=== PATIENT | female | born 1935 | race Caucasian/White ===

== ENCOUNTER 2019-09-15 08:35 | Inpatient (IN) ==
[2019-09-15 09:25] LABS: Basophils % 0.2 % (0.0-0.8); Eosinophils % 0.1 % (0.00-10.9); Hematocrit 33.6 VOL% (35.7-47.0); Hemoglobin 10.8 GM/DL (12.0-16.0); Immature Granulocytes % 0.8 %; Lymphocytes # 2.4 10*3/uL (1.4-4.0); Lymphocytes % 19.4 % (21.3-54.2); Mean Corpuscular HGB Conc 32.1 GM/DL (32-36); Mean Corpuscular Volume 76.9 FL (87-102); Mean Platelet Volume 9.5 FL (9.6-12.0); Monocytes % 7.7 % (1.7-12.7); Neutrophils % 71.8 % (38.7-73.9); Platelet Count 467 T/CUMM (130-400); Red Blood Count 4.37 MC/CUMM (3.8-5.5); Red Cell Distribution Width 12.8 % (9.3-17.3); White Blood Count 12.3 T/CUMM (4-12)
[2019-09-15] MEDS ORDERED: SODIUM CHLORIDE 0.9% 500 ML IV STA (09:36)
[2019-09-15] MEDS ORDERED: ONDANSETRON 4 MG/2 ML VIAL IV STA ×2 (09:37→10:26)
[2019-09-15 09:48] LABS: Alanine Aminotransferase 13 U/L (13-56); Albumin 3.1 G/DL (3.4-5.0); Alkaline Phosphatase 106 U/L (45-117); Aspartate Amino Transferase 15 U/L (0-37); Blood Urea Nitrogen 11 MG/DL (7-18); Calcium 8.9 MG/DL (8.5-10.1); Estimated Glom Filtration Rate 52 ML/MIN; Glucose 196 MG/DL (74-106); Osmolality,Calculated 239.6 MOS/KG (273-304); Total Protein 8.1 G/DL (6.4-8.3)
[2019-09-15] MEDS ORDERED: LEVOFLOXACIN INJ 750 MG in PREMIX 1 EACH IV STA (10:20)
[2019-09-15] MEDS ORDERED: LEVOFLOXACIN INJ 150 ML IV ONE (10:28)
[2019-09-15] MEDS ORDERED: ONDANSETRON 4 MG/2 ML VIAL ONE (10:28)
[2019-09-15 11:08] LABS: Apearance,Urine CLEAR (Clear); Bilirubin,Urine Negative (Negative); Blood, Urine Small mg/dL (Negative); Glucose,Urine (UA) Negative (Negative); Ketones,Urine 5 mg/dL (Negative); Nitrite,Urine Negative (Negative); Protein,Urine Negative; RBC,Urine 3 /HPF (0-4); Squamous Epithelial Cell,Urine Occasional /HPF (0-10); Urine Color Yellow (Yellow); Urine Specific Gravity 1.012 (1.001-1.035); Urine Urobilinogen < 2.0 EU/DL (0.2-1.0); WBC,Urine 141 /HPF (0-6)
[2019-09-15] MEDS ORDERED: PROMETHAZINE 25 MG/1 ML VIAL ONE (11:09)
[2019-09-15] MEDS ORDERED: PROMETHAZINE INJ 25 MG in SODIUM CHLORIDE 0.9% 50 ML IV STA (11:36)
[2019-09-15 14:26] LABS: Calcium 8.5 MG/DL (8.5-10.1); Osmolality,Calculated 240.3 MOS/KG (273-304)
[2019-09-15] MEDS: SODIUM CHLORIDE 0.9% 1,000 ML IV SCH (16:03)
[2019-09-15] MEDS: ONDANSETRON 4 MG/2 ML VIAL IV PRN (16:38)
[2019-09-15] MEDS: cefTRIAXone 1,000 MG in SYRINGE 1 EACH IV SCH (16:38)
[2019-09-15] MEDS: SIMVASTATIN 40 MG TABLET PO SCH (20:49)
[2019-09-15] MEDS: ASPIRIN EC 81 MG TABLET PO SCH (20:49)
[2019-09-15] MEDS: DOCUSATE SODIUM 100 MG CAPSULE PO SCH (20:50)
[2019-09-16] MEDS: SODIUM CHLORIDE 0.9% 1,000 ML IV SCH ×3 (01:38→16:36)
[2019-09-16] MEDS: ACETAMINOPHEN 325 MG TABLET PO PRN (04:54)
[2019-09-16 07:09] LABS: Calcium 8.2 MG/DL (8.5-10.1); Osmolality,Calculated 239.3 MOS/KG (273-304)
[2019-09-16] MEDS ORDERED: NON-FORMULARY MEDICATION (Omeprazole 20 MG) PO SCH (09:00)
[2019-09-16] MEDS: METOPROLOL SUCCINATE XL 50 MG TABLET PO SCH (09:06)
[2019-09-16] MEDS: DOCUSATE SODIUM 100 MG CAPSULE PO SCH ×2 (09:06→21:35)
[2019-09-16] MEDS: cefTRIAXone 1,000 MG in SYRINGE 1 EACH IV SCH (09:06)
[2019-09-16] MEDS: PANTOPRAZOLE 40 MG TABLET PO SCH (09:06)
[2019-09-16] MEDS: ENOXAPARIN 40 MG/0.4 ML SYRINGE SUBCUT SCH (09:06)
[2019-09-16] MEDS: ONDANSETRON 4 MG/2 ML VIAL IV PRN (09:14)
[2019-09-16] MEDS: SIMVASTATIN 40 MG TABLET PO SCH (21:35)
[2019-09-16] MEDS: ASPIRIN EC 81 MG TABLET PO SCH (21:35)
[2019-09-17] MEDS: ACETAMINOPHEN 325 MG TABLET PO PRN ×2 (02:27→17:54)
[2019-09-17 05:49] LABS: Calcium 7.9 MG/DL (8.5-10.1); Osmolality,Calculated 250.5 MOS/KG (273-304)
[2019-09-17] MEDS: PANTOPRAZOLE 40 MG TABLET PO SCH (06:19)
[2019-09-17] MEDS: SODIUM CHLORIDE 0.9% 1,000 ML IV SCH ×3 (07:10→17:59)
[2019-09-17] MEDS: METOPROLOL SUCCINATE XL 50 MG TABLET PO SCH (08:38)
[2019-09-17] MEDS: cefTRIAXone 1,000 MG in SYRINGE 1 EACH IV SCH (08:38)
[2019-09-17] MEDS: ENOXAPARIN 40 MG/0.4 ML SYRINGE SUBCUT SCH (08:38)
[2019-09-17] MEDS: DOCUSATE SODIUM 100 MG CAPSULE PO SCH ×2 (08:38→21:14)
[2019-09-17] MEDS ORDERED: MAGNESIUM SULF RIDER 2 GM in PREMIX 1 EACH IV PRN (11:24)
[2019-09-17] MEDS ORDERED: MAGNESIUM SULF RIDER 4 GM in PREMIX 1 EACH IV PRN (11:24)
[2019-09-17] MEDS ORDERED: POTASSIUM CHLORIDE RIDER 10 MEQ in PREMIX 1 EACH IV PRN (11:24)
[2019-09-17] MEDS: POTASSIUM CHLORIDE 20 MEQ TABLET PO PRN ×3 (11:55→21:15)
[2019-09-17] MEDS ORDERED: BISACODYL 5 MG TABLET PO ONE (12:30)
[2019-09-17] MEDS: SIMVASTATIN 40 MG TABLET PO SCH (21:15)
[2019-09-17] MEDS: ASPIRIN EC 81 MG TABLET PO SCH (21:15)
[2019-09-18] MEDS: PANTOPRAZOLE 40 MG TABLET PO SCH (05:41)
[2019-09-18 06:59] LABS: Osmolality,Calculated 260.7 MOS/KG (273-304)
[2019-09-18 07:25] VITALS: BP 181/61
[2019-09-18] MEDS: SODIUM CHLORIDE 0.9% 1,000 ML IV SCH (07:34)
[2019-09-18] MEDS: METOPROLOL SUCCINATE XL 50 MG TABLET PO SCH (09:34)
[2019-09-18] MEDS: ENOXAPARIN 40 MG/0.4 ML SYRINGE SUBCUT SCH (09:34)
[2019-09-18] MEDS: cefTRIAXone 1,000 MG in SYRINGE 1 EACH IV SCH (09:34)
[2019-09-18] MEDS: DOCUSATE SODIUM 100 MG CAPSULE PO SCH (09:34)
== END 2019-09-18 11:59 | disposition home or self-care (01) | DRG 641 ==
LOC: N.ED 08:35 → N.EDINP 10:32 → N.2E 11:40
PROVIDERS: ADMIT Family Medicine; ATTEND Family Medicine

== ENCOUNTER 2020-09-13 08:10 | Inpatient (IN) ==
[2020-09-13] MEDS ORDERED: ONDANSETRON 4 MG/2 ML VIAL IV STA (08:27)
[2020-09-13] MEDS ORDERED: HYDROmorphone 2 MG/1 ML VIAL IV STA (08:27)
[2020-09-13 08:50] LABS: Basophils # 0.1 10*3/uL (0.0-0.2); Basophils % 0.4 % (0.0-0.8); Eosinophils % 0.2 % (0.00-10.9); Hematocrit 30.5 VOL% (35.7-47.0); Hemoglobin 9.2 GM/DL (12.0-16.0); Immature Granulocytes % 0.4 %; Immature Granulocytes Absolute 0.05 #; Lymphocytes # 2.1 10*3/uL (1.4-4.0); Lymphocytes % 16.3 % (21.3-54.2); Mean Corpuscular HGB Conc 30.2 GM/DL (32-36); Mean Corpuscular Volume 82.4 FL (87-102); Mean Platelet Volume 10.7 FL (9.6-12.0); Monocytes % 8.7 % (1.7-12.7); Platelet Count 253 T/CUMM (130-400); Red Cell Distribution Width 15.3 % (9.3-17.3); White Blood Count 12.7 T/CUMM (4-12)
[2020-09-13 09:01] LABS: INR 1.1; PT Patient Result 11.4 SECS (9.8-11.9); Partial Thromboplastin Time 26.9 SECS (23.9-33.8)
[2020-09-13 09:08] LABS: Albumin 3.3 G/DL (3.4-5.0); Bilirubin,Total 0.6 MG/DL (0.2-1.0); Calcium 9.1 MG/DL (8.5-10.1); Osmolality,Calculated 265.8 MOS/KG (273-304); Total Protein 7.4 G/DL (6.4-8.3)
[2020-09-13] MEDS ORDERED: ONDANSETRON 4 MG/2 ML VIAL IV PRN (10:32)
[2020-09-13] MEDS ORDERED: ACETAMINOPHEN 325 MG TABLET PO PRN (10:32)
[2020-09-13] MEDS ORDERED: GLUCAGON 1 MG VIAL IM PRN (10:32)
[2020-09-13] MEDS ORDERED: DEXTROSE 50% 25 GM/50 ML VIAL IV PRN (10:32)
[2020-09-13] MEDS ORDERED: SODIUM CHLORIDE 0.9% 1,000 ML IV SCH (10:32)
[2020-09-13] MEDS: DOCUSATE SODIUM 100 MG CAPSULE PO SCH ×2 (11:12→20:04)
[2020-09-13] MEDS: PANTOPRAZOLE 40 MG TABLET PO SCH (11:12)
[2020-09-13] MEDS: INSULIN LISPRO 100 UNIT/ML SUBCUT SCH ×2 (11:45→23:01)
[2020-09-13] MEDS ORDERED: BACITRACIN OINT 0.9 GM PACK TOP ONE (15:01)
[2020-09-13] MEDS ORDERED: SEVOFLURANE 1 UNIT/15 MINUTE INH ONE ×4 (15:31→17:45)
[2020-09-13] MEDS ORDERED: DEXAMETHASONE 4 MG/1 ML VIAL ONE (15:31)
[2020-09-13] MEDS ORDERED: ACETAMINOPHEN 1,000 MG/100 ML VIAL IV ONE (15:31)
[2020-09-13] MEDS ORDERED: ROCURONIUM 50 MG/5 ML VIAL IV ONE (15:31)
[2020-09-13] MEDS ORDERED: propofoL 200 MG/20 ML VIAL IV ONE (15:31)
[2020-09-13] MEDS ORDERED: ONDANSETRON 4 MG/2 ML VIAL ONE (15:31)
[2020-09-13] MEDS ORDERED: fentaNYL 100 MCG/2 ML VIAL ONE (15:31)
[2020-09-13] MEDS ORDERED: LIDOCAINE 2% 5 ML VIAL ONE (15:31)
[2020-09-13] MEDS ORDERED: ETOMIDATE 40 MG/20 ML VIAL IV ONE (15:31)
[2020-09-13] MEDS ORDERED: NEOSTIGMINE 10 MG/10 ML VIAL ONE (15:35)
[2020-09-13] MEDS ORDERED: GLYCOPYRROLATE 0.4 MG/2 ML VIAL ONE (15:35)
[2020-09-13] MEDS ORDERED: ceFAZolin 1,000 MG in SYRINGE 1 EACH IV ONE (15:42)
[2020-09-13] MEDS: LACTATED RINGERS 1,000 ML IV SCH ×3 (16:00→18:35)
[2020-09-13] MEDS ORDERED: LACTATED RINGERS 1,000 ML IV ONE (16:36)
[2020-09-13] MEDS ORDERED: ceFAZolin 1,000 MG VIAL ONE (16:37)
[2020-09-13] MEDS ORDERED: ePHEDrine 50 MG/ML VIAL ONE (16:41)
[2020-09-13] MEDS ORDERED: PHENYLEPHRINE 1 MG/10 ML SYRINGE IV ONE (17:12)
[2020-09-13] MEDS: ceFAZolin 1,000 MG in SYRINGE 1 EACH IV SCH (20:05)
[2020-09-14] MEDS: LACTATED RINGERS 1,000 ML IV SCH ×4 (01:52→23:15)
[2020-09-14] MEDS: ceFAZolin 1,000 MG in SYRINGE 1 EACH IV SCH (03:26)
[2020-09-14] MEDS: INSULIN LISPRO 100 UNIT/ML SUBCUT SCH ×5 (05:05→23:14)
[2020-09-14 05:51] LABS: Basophils % 0.1 % (0.0-0.8); Hematocrit 25.7 VOL% (35.7-47.0); Immature Granulocytes % 0.5 %; Immature Granulocytes Absolute 0.08 #; Lymphocytes # 1.7 10*3/uL (1.4-4.0); Lymphocytes % 11.4 % (21.3-54.2); Mean Corpuscular HGB Conc 31.1 GM/DL (32-36); Mean Corpuscular Volume 82.1 FL (87-102); Mean Platelet Volume 11.1 FL (9.6-12.0); Monocytes % 7.8 % (1.7-12.7); Neutrophils % 80.2 % (38.7-73.9); Platelet Count 260 T/CUMM (130-400); Red Blood Count 3.13 MC/CUMM (3.8-5.5); Red Cell Distribution Width 15.6 % (9.3-17.3); White Blood Count 14.7 T/CUMM (4-12)
[2020-09-14 06:08] LABS: Calcium 8.4 MG/DL (8.5-10.1); Osmolality,Calculated 279.1 MOS/KG (273-304)
[2020-09-14] MEDS ORDERED: FUROSEMIDE 20 MG/2 ML VIAL IV PRN (06:45)
[2020-09-14] MEDS ORDERED: SODIUM CHLORIDE 0.9% 1,000 ML IV PRN (06:45)
[2020-09-14] MEDS: FONDAPARINUX 2.5 MG/0.5 ML SYRINGE SUBCUT SCH (10:03)
[2020-09-14] MEDS: FERROUS SULFATE 325 MG TABLET PO SCH ×2 (10:03→18:13)
[2020-09-14] MEDS: PANTOPRAZOLE 40 MG TABLET PO SCH (10:03)
[2020-09-14] MEDS: DOCUSATE SODIUM 100 MG CAPSULE PO SCH ×3 (10:03→20:48)
[2020-09-15] MEDS: HYDROmorphone 2 MG/1 ML VIAL IV PRN (04:26)
[2020-09-15] MEDS: INSULIN LISPRO 100 UNIT/ML SUBCUT SCH ×3 (05:56→18:07)
[2020-09-15 06:06] LABS: Basophils # 0.1 10*3/uL (0.0-0.2); Basophils % 0.5 % (0.0-0.8); Eosinophils # 0.1 10*3/uL (0.0-0.87); Eosinophils % 0.8 % (0.00-10.9); Hematocrit 26.1 VOL% (35.7-47.0); Hemoglobin 7.9 GM/DL (12.0-16.0); Immature Granulocytes % 0.6 %; Immature Granulocytes Absolute 0.08 #; Lymphocytes # 3.5 10*3/uL (1.4-4.0); Lymphocytes % 25.2 % (21.3-54.2); Mean Corpuscular HGB Conc 30.3 GM/DL (32-36); Mean Corpuscular Volume 84.7 FL (87-102); Mean Platelet Volume 11.1 FL (9.6-12.0); Monocytes % 12.6 % (1.7-12.7); Neutrophils % 60.3 % (38.7-73.9); Platelet Count 243 T/CUMM (130-400); Red Blood Count 3.08 MC/CUMM (3.8-5.5); Red Cell Distribution Width 15.9 % (9.3-17.3); White Blood Count 13.9 T/CUMM (4-12)
[2020-09-15] MEDS: LACTATED RINGERS 1,000 ML IV SCH ×3 (07:13→15:53)
[2020-09-15 07:33] LABS: Hematocrit 24.7 VOL% (35.7-47.0); Hemoglobin 7.5 GM/DL (12.0-16.0)
[2020-09-15] MEDS: DOCUSATE SODIUM 100 MG CAPSULE PO SCH ×2 (09:19→20:57)
[2020-09-15] MEDS: PANTOPRAZOLE 40 MG TABLET PO SCH (09:19)
[2020-09-15] MEDS: FERROUS SULFATE 325 MG TABLET PO SCH ×2 (09:19→16:48)
[2020-09-15] MEDS: FONDAPARINUX 2.5 MG/0.5 ML SYRINGE SUBCUT SCH (09:20)
[2020-09-16] MEDS: INSULIN LISPRO 100 UNIT/ML SUBCUT SCH ×4 (00:51→17:27)
[2020-09-16] MEDS: LACTATED RINGERS 1,000 ML IV SCH ×3 (00:51→17:15)
[2020-09-16 06:12] LABS: Basophils # 0.1 10*3/uL (0.0-0.2); Basophils % 0.7 % (0.0-0.8); Eosinophils # 0.2 10*3/uL (0.0-0.87); Eosinophils % 1.3 % (0.00-10.9); Hematocrit 33.6 VOL% (35.7-47.0); Immature Granulocytes % 0.5 %; Immature Granulocytes Absolute 0.06 #; Lymphocytes # 2.7 10*3/uL (1.4-4.0); Lymphocytes % 20.9 % (21.3-54.2); Mean Corpuscular HGB Conc 31.3 GM/DL (32-36); Mean Corpuscular Volume 85.3 FL (87-102); Mean Platelet Volume 10.2 FL (9.6-12.0); Monocytes % 15.2 % (1.7-12.7); Neutrophils % 61.4 % (38.7-73.9); Platelet Count 240 T/CUMM (130-400); Red Cell Distribution Width 15.9 % (9.3-17.3); White Blood Count 12.8 T/CUMM (4-12)
[2020-09-16 06:18] LABS: Hemoglobin 10.5 GM/DL (12.0-16.0); Red Blood Count 3.94 MC/CUMM (3.8-5.5)
[2020-09-16 06:25] LABS: Calcium 8.6 MG/DL (8.5-10.1); Potassium 4.5 MMOL/L (3.5-5.1)
[2020-09-16] MEDS: FONDAPARINUX 2.5 MG/0.5 ML SYRINGE SUBCUT SCH (09:22)
[2020-09-16] MEDS: DOCUSATE SODIUM 100 MG CAPSULE PO SCH ×2 (09:22→20:54)
[2020-09-16] MEDS: PANTOPRAZOLE 40 MG TABLET PO SCH (09:22)
[2020-09-16] MEDS: FERROUS SULFATE 325 MG TABLET PO SCH ×2 (09:23→17:25)
[2020-09-16] MEDS: MAGNESIUM HYDROXIDE SUSP 30 ML UDCUP PO PRN (09:30)
[2020-09-16] MEDS ORDERED: METOPROLOL SUCCINATE XL 25 MG TABLET PO ONE ×2 (10:09→14:25)
[2020-09-16] MEDS ORDERED: DIGOXIN 0.5 MG/2 ML AMP IV ONE (14:25)
[2020-09-16] MEDS: METOPROLOL SUCCINATE XL 50 MG TABLET PO SCH (20:57)
[2020-09-17] MEDS: INSULIN LISPRO 100 UNIT/ML SUBCUT SCH ×4 (00:25→18:19)
[2020-09-17] MEDS: LACTATED RINGERS 1,000 ML IV SCH ×3 (00:25→16:42)
[2020-09-17 06:15] LABS: Basophils % 0.4 % (0.0-0.8); Eosinophils # 0.3 10*3/uL (0.0-0.87); Eosinophils % 3.2 % (0.00-10.9); Hemoglobin 9.7 GM/DL (12.0-16.0); Immature Granulocytes % 0.6 %; Immature Granulocytes Absolute 0.05 #; Lymphocytes # 1.8 10*3/uL (1.4-4.0); Lymphocytes % 19.9 % (21.3-54.2); Mean Corpuscular HGB Conc 31.3 GM/DL (32-36); Mean Corpuscular Volume 85.9 FL (87-102); Mean Platelet Volume 10.5 FL (9.6-12.0); Monocytes % 14.7 % (1.7-12.7); Neutrophils % 61.2 % (38.7-73.9); Platelet Count 203 T/CUMM (130-400); Red Blood Count 3.61 MC/CUMM (3.8-5.5); Red Cell Distribution Width 16.1 % (9.3-17.3)
[2020-09-17 06:52] LABS: Calcium 8.3 MG/DL (8.5-10.1); Osmolality,Calculated 273.8 MOS/KG (273-304); Potassium 4.7 MMOL/L (3.5-5.1); Thyroid Stimulating Hormone 1.32 uIU/ml (0.358-3.74)
[2020-09-17 06:53] LABS: Calcium 8.7 MG/DL (8.5-10.1); Osmolality,Calculated 271.1 MOS/KG (273-304); Potassium 4.6 MMOL/L (3.5-5.1)
[2020-09-17] MEDS ORDERED: METOPROLOL SUCCINATE XL 25 MG TABLET PO SCH (09:00)
[2020-09-17] MEDS: MAGNESIUM HYDROXIDE SUSP 30 ML UDCUP PO PRN (09:21)
[2020-09-17] MEDS: FERROUS SULFATE 325 MG TABLET PO SCH ×3 (09:22→17:34)
[2020-09-17] MEDS: METOPROLOL SUCCINATE XL 50 MG TABLET PO SCH ×3 (09:22→20:58)
[2020-09-17] MEDS: FONDAPARINUX 2.5 MG/0.5 ML SYRINGE SUBCUT SCH (09:22)
[2020-09-17] MEDS: DOCUSATE SODIUM 100 MG CAPSULE PO SCH ×2 (09:22→20:58)
[2020-09-17] MEDS: PANTOPRAZOLE 40 MG TABLET PO SCH ×2 (09:22→10:51)
[2020-09-17] MEDS ORDERED: DIGOXIN 0.5 MG/2 ML AMP IV ONE (12:30)
[2020-09-18] MEDS: INSULIN LISPRO 100 UNIT/ML SUBCUT SCH ×4 (00:09→17:50)
[2020-09-18] MEDS ORDERED: BISACODYL 10 MG SUPP RECTAL PRN (07:25)
[2020-09-18 08:05] LABS: Basophils % 0.4 % (0.0-0.8); Eosinophils # 0.3 10*3/uL (0.0-0.87); Eosinophils % 3.5 % (0.00-10.9); Hematocrit 33.3 VOL% (35.7-47.0); Hemoglobin 10.6 GM/DL (12.0-16.0); Immature Granulocytes % 0.6 %; Immature Granulocytes Absolute 0.04 #; Lymphocytes # 1.4 10*3/uL (1.4-4.0); Lymphocytes % 19.6 % (21.3-54.2); Mean Corpuscular HGB Conc 31.8 GM/DL (32-36); Mean Corpuscular Volume 85.8 FL (87-102); Mean Platelet Volume 10.1 FL (9.6-12.0); Monocytes % 14.1 % (1.7-12.7); Neutrophils % 61.8 % (38.7-73.9); Platelet Count 199 T/CUMM (130-400); Red Blood Count 3.88 MC/CUMM (3.8-5.5); Red Cell Distribution Width 15.8 % (9.3-17.3); White Blood Count 7.2 T/CUMM (4-12)
[2020-09-18 08:24] LABS: Calcium 8.5 MG/DL (8.5-10.1); Osmolality,Calculated 271.8 MOS/KG (273-304); Potassium 4.2 MMOL/L (3.5-5.1)
[2020-09-18] MEDS: PANTOPRAZOLE 40 MG TABLET PO SCH (09:33)
[2020-09-18] MEDS: METOPROLOL SUCCINATE XL 50 MG TABLET PO SCH ×2 (09:33→21:13)
[2020-09-18] MEDS: FERROUS SULFATE 325 MG TABLET PO SCH ×2 (09:34→17:50)
[2020-09-18] MEDS: FONDAPARINUX 2.5 MG/0.5 ML SYRINGE SUBCUT SCH (09:35)
[2020-09-18] MEDS: cefTRIAXone 1,000 MG in SYRINGE 1 EACH IV SCH (09:36)
[2020-09-18] MEDS: DOCUSATE SODIUM 100 MG CAPSULE PO SCH ×2 (10:30→21:13)
[2020-09-18 17:59] LABS: Bilirubin,Urine Negative (Negative); Blood, Urine Small mg/dL (Negative); Glucose,Urine (UA) Negative (Negative); Ketones,Urine Negative (Negative); Nitrite,Urine Negative (Negative); Protein,Urine Negative; RBC,Urine 7 /HPF (0-4); Squamous Epithelial Cell,Urine Occasional /HPF (0-10); Urine Appearance CLEAR (Clear); Urine Color Yellow (Yellow); Urine Specific Gravity 1.045 (1.001-1.035); WBC,Urine 116 /HPF (0-6)
[2020-09-19] MEDS: INSULIN LISPRO 100 UNIT/ML SUBCUT SCH ×4 (00:10→17:51)
[2020-09-19] MEDS: METOPROLOL SUCCINATE XL 50 MG TABLET PO SCH ×3 (08:24→22:33)
[2020-09-19] MEDS: FERROUS SULFATE 325 MG TABLET PO SCH ×3 (08:24→17:51)
[2020-09-19] MEDS: DOCUSATE SODIUM 100 MG CAPSULE PO SCH ×3 (08:25→22:33)
[2020-09-19] MEDS: PANTOPRAZOLE 40 MG TABLET PO SCH (08:26)
[2020-09-19] MEDS: cefTRIAXone 1,000 MG in SYRINGE 1 EACH IV SCH (08:26)
[2020-09-19] MEDS: FONDAPARINUX 2.5 MG/0.5 ML SYRINGE SUBCUT SCH (09:20)
[2020-09-19] MEDS: HYDROmorphone 2 MG/1 ML VIAL IV PRN (21:56)
[2020-09-20] MEDS: INSULIN LISPRO 100 UNIT/ML SUBCUT SCH ×4 (00:56→17:10)
[2020-09-20] MEDS ORDERED: HYDROcod/ACETAMIN 7.5-325 MG/15 ML UDCUP PO PRN (08:39)
[2020-09-20] MEDS: METOPROLOL SUCCINATE XL 50 MG TABLET PO SCH ×2 (09:01→21:33)
[2020-09-20] MEDS: PANTOPRAZOLE 40 MG TABLET PO SCH (09:01)
[2020-09-20] MEDS: DOCUSATE SODIUM 100 MG CAPSULE PO SCH ×2 (09:01→21:32)
[2020-09-20] MEDS: HYDROmorphone 2 MG/1 ML VIAL IV PRN (09:06)
[2020-09-20] MEDS: cefTRIAXone 1,000 MG in SYRINGE 1 EACH IV SCH (09:07)
[2020-09-20] MEDS: FONDAPARINUX 2.5 MG/0.5 ML SYRINGE SUBCUT SCH (09:07)
[2020-09-20] MEDS: FERROUS SULFATE 325 MG TABLET PO SCH ×2 (09:13→16:52)
[2020-09-20] MEDS: LACTATED RINGERS 1,000 ML IV SCH (12:20)
[2020-09-20] MEDS ORDERED: MORPHINE 4 MG/1 ML VIAL ONE (15:49)
[2020-09-20] MEDS ORDERED: MORPHINE 4 MG/1 ML VIAL IM PRN (15:54)
[2020-09-21] MEDS: INSULIN LISPRO 100 UNIT/ML SUBCUT SCH ×3 (00:41→10:59)
[2020-09-21] MEDS: PANTOPRAZOLE 40 MG TABLET PO SCH (09:53)
[2020-09-21] MEDS: DOCUSATE SODIUM 100 MG CAPSULE PO SCH (09:53)
[2020-09-21] MEDS: FONDAPARINUX 2.5 MG/0.5 ML SYRINGE SUBCUT SCH (09:53)
[2020-09-21] MEDS: FERROUS SULFATE 325 MG TABLET PO SCH (09:53)
[2020-09-21] MEDS: METOPROLOL SUCCINATE XL 50 MG TABLET PO SCH (09:53)
[2020-09-21] MEDS: cefTRIAXone 1,000 MG in SYRINGE 1 EACH IV SCH (10:40)
[2020-09-21 11:12] VITALS: BP 173/65
[2020-09-21] MEDS: MAGNESIUM HYDROXIDE SUSP 30 ML UDCUP PO PRN ×2 (11:13→11:28)
== END 2020-09-21 15:40 | DRG 480 ==
LOC: EDBD → EDUNIT# → N.ED 08:10 → N.EDINP 08:53 → N.3E 10:25
PROVIDERS: ADMIT Family Medicine; ATTEND Family Medicine

== ENCOUNTER 2020-12-10 09:30 | Inpatient (IN) ==
[2020-12-10] MEDS ORDERED: ONDANSETRON 4 MG/2 ML VIAL IV ONE (09:55)
[2020-12-10] MEDS ORDERED: MORPHINE 4 MG/1 ML VIAL IV ONE (09:55)
[2020-12-10 10:48] LABS: Basophils # 0.1 10*3/uL (0.0-0.2); Basophils % 0.6 % (0.0-0.8); Eosinophils # 0.1 10*3/uL (0.0-0.87); Hematocrit 36.9 VOL% (35.7-47.0); Hemoglobin 12.2 GM/DL (12.0-16.0); Immature Granulocytes % 0.7 %; Immature Granulocytes Absolute 0.07 #; Lymphocytes # 1.8 10*3/uL (1.4-4.0); Lymphocytes % 17.1 % (21.3-54.2); Mean Corpuscular HGB Conc 33.1 GM/DL (32-36); Mean Corpuscular Volume 86.8 FL (87-102); Mean Platelet Volume 10.7 FL (9.6-12.0); Neutrophils % 71.6 % (38.7-73.9); Platelet Count 234 T/CUMM (130-400); Red Blood Count 4.25 MC/CUMM (3.8-5.5); Red Cell Distribution Width 13.5 % (9.3-17.3); White Blood Count 10.4 T/CUMM (4-12)
[2020-12-10 10:57] LABS: INR 1.1; PT Patient Result 11.7 SECS (10.5-12.0)
[2020-12-10 11:07] LABS: Albumin 3.1 G/DL (3.4-5.0); Bilirubin,Total 0.5 MG/DL (0.2-1.0); Calcium 9.2 MG/DL (8.5-10.1); Osmolality,Calculated 273.2 MOS/KG (273-304); Potassium 3.7 MMOL/L (3.5-5.1); Total Protein 7.5 G/DL (6.4-8.2)
[2020-12-10] MEDS ORDERED: HYDROmorphone 2 MG/1 ML VIAL IV STA (11:19)
[2020-12-10] MEDS ORDERED: ceFAZolin 2,000 MG/50 ML DUPLEX IV ONE (11:51)
[2020-12-10] MEDS ORDERED: MAGNESIUM HYDROXIDE SUSP 30 ML UDCUP PO PRN (11:51)
[2020-12-10] MEDS: ONDANSETRON 4 MG/2 ML VIAL IV PRN (11:55)
[2020-12-10] MEDS: SODIUM CHLORIDE 0.9% 1,000 ML IV SCH (12:20)
[2020-12-10] MEDS: HYDROmorphone 2 MG/1 ML VIAL IV PRN ×2 (13:05→17:08)
[2020-12-10 14:24] LABS: Bacteria,Urine Occasional /HPF (Few); Bilirubin,Urine Negative (Negative); Blood, Urine Negative (Negative); Glucose,Urine (UA) Negative (Negative); Ketones,Urine Negative (Negative); Mucus,Urine Occasional /LPF (Occasional); Nitrite,Urine Positive (Negative); Protein,Urine 30 MG/DL; Squamous Epithelial Cell,Urine Occasional /HPF (0-10); Urine Appearance CLEAR (Clear); Urine Color Yellow (Yellow); Urine Specific Gravity 1.014 (1.001-1.035); Urine Urobilinogen < 2.0 EU/DL (0.2-1.0)
[2020-12-10] MEDS: cefTRIAXone 1,000 MG in SODIUM CHLORIDE 0.9% 100 ML IV SCH (18:37)
[2020-12-10] MEDS: cloNIDine 0.1 MG TABLET PO SCH (21:14)
[2020-12-10] MEDS: hydroCHLOROthiazide 12.5 MG CAPSULE PO SCH (21:14)
[2020-12-10] MEDS: ASPIRIN EC 81 MG TABLET PO SCH (21:15)
[2020-12-10] MEDS: ENOXAPARIN 40 MG/0.4 ML SYRINGE SUBCUT SCH (21:15)
[2020-12-10] MEDS: metFORMIN 500 MG TABLET PO SCH (21:15)
[2020-12-10] MEDS: LOSARTAN 50 MG TABLET PO SCH (21:15)
[2020-12-10] MEDS: SIMVASTATIN 40 MG TABLET PO SCH (21:15)
[2020-12-11] MEDS: SODIUM CHLORIDE 0.9% 1,000 ML IV SCH ×2 (00:53→13:08)
[2020-12-11] MEDS ORDERED: SEVOFLURANE 1 UNIT/15 MINUTE INH ONE ×4 (06:52→08:59)
[2020-12-11] MEDS ORDERED: LIDOCAINE 2% 5 ML VIAL ONE (06:52)
[2020-12-11] MEDS ORDERED: ROCURONIUM 50 MG/5 ML VIAL IV ONE (06:52)
[2020-12-11] MEDS ORDERED: GLYCOPYRROLATE 0.4 MG/2 ML VIAL ONE (06:52)
[2020-12-11] MEDS ORDERED: ETOMIDATE 40 MG/20 ML VIAL IV ONE (06:52)
[2020-12-11] MEDS ORDERED: DEXAMETHASONE 4 MG/1 ML VIAL ONE (06:52)
[2020-12-11] MEDS ORDERED: propofoL 200 MG/20 ML VIAL IV ONE (06:52)
[2020-12-11] MEDS ORDERED: ONDANSETRON 4 MG/2 ML VIAL ONE (06:52)
[2020-12-11] MEDS ORDERED: ACETAMINOPHEN INJ 1,000 MG/100 ML VIAL IV ONE (06:53)
[2020-12-11] MEDS ORDERED: NEOSTIGMINE 10 MG/10 ML VIAL ONE (06:53)
[2020-12-11] MEDS ORDERED: fentaNYL 100 MCG/2 ML VIAL ONE (06:53)
[2020-12-11 07:40] LABS: Calcium 7.4 MG/DL (8.5-10.1); Osmolality,Calculated 281.4 MOS/KG (273-304); Potassium 3.6 MMOL/L (3.5-5.1)
[2020-12-11] MEDS ORDERED: ePHEDrine 50 MG/ML VIAL ONE (07:48)
[2020-12-11] MEDS: cloNIDine 0.1 MG TABLET PO SCH (08:16)
[2020-12-11] MEDS: METOPROLOL SUCCINATE XL 50 MG TABLET PO SCH (08:16)
[2020-12-11] MEDS: metFORMIN 500 MG TABLET PO SCH (08:16)
[2020-12-11] MEDS ORDERED: PHENYLEPHRINE 10 MG/1 ML VIAL IV ONE (08:17)
[2020-12-11] MEDS ORDERED: PHENYLEPHRINE 1 MG/10 ML SYRINGE IV ONE (08:43)
[2020-12-11] MEDS ORDERED: SODIUM CHLORIDE 0.9% 100 ML IV ONE (08:59)
[2020-12-11] MEDS ORDERED: SODIUM CHLORIDE 0.9% 1,000 ML IV ONE (08:59)
[2020-12-11] MEDS ORDERED: ONDANSETRON 4 MG/2 ML VIAL IV PRN (09:43)
[2020-12-11] MEDS: ONDANSETRON 4 MG/2 ML VIAL IV PRN (11:20)
[2020-12-11 11:58] LABS: Basophils # 0.1 10*3/uL (0.0-0.2); Basophils % 0.3 % (0.0-0.8); Hematocrit 27.2 VOL% (35.7-47.0); Hemoglobin 8.9 GM/DL (12.0-16.0); Immature Granulocytes % 0.6 %; Immature Granulocytes Absolute 0.12 #; Lymphocytes # 1.2 10*3/uL (1.4-4.0); Mean Corpuscular HGB Conc 32.7 GM/DL (32-36); Mean Corpuscular Volume 90.1 FL (87-102); Mean Platelet Volume 10.4 FL (9.6-12.0); Monocytes % 5.3 % (1.7-12.7); Neutrophils % 87.8 % (38.7-73.9); Platelet Count 205 T/CUMM (130-400); Red Blood Count 3.02 MC/CUMM (3.8-5.5); Red Cell Distribution Width 13.6 % (9.3-17.3); White Blood Count 20.1 T/CUMM (4-12)
[2020-12-11 12:30] LABS: Band Neutrophils 2 % (0-10); Lymphocytes 7 % (20-55); Segmented Neutrophils 89 % (50-85); Total Cells Counted 100
[2020-12-11 12:33] LABS: Burr Cells Few; Hypochromasia Slight; Microcytosis Slight
[2020-12-11] MEDS: cefTRIAXone 1,000 MG in SODIUM CHLORIDE 0.9% 100 ML IV SCH (17:31)
[2020-12-12] MEDS: HYDROmorphone 2 MG/1 ML VIAL IV PRN (01:11)
[2020-12-12] MEDS: metFORMIN 500 MG TABLET PO SCH ×2 (01:53→08:49)
[2020-12-12] MEDS: hydroCHLOROthiazide 12.5 MG CAPSULE PO SCH ×2 (01:53→22:06)
[2020-12-12] MEDS: cloNIDine 0.1 MG TABLET PO SCH ×3 (01:53→22:05)
[2020-12-12] MEDS: SIMVASTATIN 40 MG TABLET PO SCH (01:53)
[2020-12-12] MEDS: ASPIRIN EC 81 MG TABLET PO SCH (01:53)
[2020-12-12] MEDS: ENOXAPARIN 40 MG/0.4 ML SYRINGE SUBCUT SCH (01:53)
[2020-12-12] MEDS: LOSARTAN 50 MG TABLET PO SCH ×2 (01:53→22:05)
[2020-12-12 05:39] LABS: Hematocrit 22.2 VOL% (35.7-47.0); Hemoglobin 7.2 GM/DL (12.0-16.0)
[2020-12-12] MEDS ORDERED: SODIUM CHLORIDE 0.9% 1,000 ML IV PRN (07:42)
[2020-12-12] MEDS: SODIUM CHLORIDE 0.9% 1,000 ML IV SCH ×2 (08:48→09:34)
[2020-12-12] MEDS: METOPROLOL SUCCINATE XL 50 MG TABLET PO SCH (08:49)
[2020-12-12 16:53] LABS: Hematocrit 31.6 VOL% (35.7-47.0); Hemoglobin 10.3 GM/DL (12.0-16.0)
[2020-12-12] MEDS: cefTRIAXone 1,000 MG in SODIUM CHLORIDE 0.9% 100 ML IV SCH (21:00)
[2020-12-13] MEDS: ENOXAPARIN 40 MG/0.4 ML SYRINGE SUBCUT SCH (00:43)
[2020-12-13] MEDS: SODIUM CHLORIDE 0.9% 1,000 ML IV SCH ×4 (00:57→22:06)
[2020-12-13] MEDS: SIMVASTATIN 40 MG TABLET PO SCH (01:00)
[2020-12-13] MEDS: metFORMIN 500 MG TABLET PO SCH ×2 (01:00→09:47)
[2020-12-13] MEDS: ASPIRIN EC 81 MG TABLET PO SCH (01:00)
[2020-12-13 09:06] LABS: Basophils # 0.1 10*3/uL (0.0-0.2); Basophils % 0.7 % (0.0-0.8); Eosinophils # 0.5 10*3/uL (0.0-0.87); Eosinophils % 3.9 % (0.00-10.9); Hematocrit 34.9 VOL% (35.7-47.0); Hemoglobin 11.1 GM/DL (12.0-16.0); Immature Granulocytes % 0.7 %; Immature Granulocytes Absolute 0.09 #; Lymphocytes # 2.7 10*3/uL (1.4-4.0); Lymphocytes % 20.4 % (21.3-54.2); Mean Corpuscular HGB Conc 31.8 GM/DL (32-36); Mean Corpuscular Volume 90.9 FL (87-102); Mean Platelet Volume 10.8 FL (9.6-12.0); Monocytes % 13.3 % (1.7-12.7); Platelet Count 167 T/CUMM (130-400); Red Blood Count 3.84 MC/CUMM (3.8-5.5); Red Cell Distribution Width 14.8 % (9.3-17.3); White Blood Count 13.3 T/CUMM (4-12)
[2020-12-13 09:24] LABS: Calcium 8.6 MG/DL (8.5-10.1); Osmolality,Calculated 278.7 MOS/KG (273-304); Potassium 4.4 MMOL/L (3.5-5.1)
[2020-12-13] MEDS: METOPROLOL SUCCINATE XL 50 MG TABLET PO SCH (09:47)
[2020-12-13] MEDS: cloNIDine 0.1 MG TABLET PO SCH (09:47)
[2020-12-13] MEDS ORDERED: MAGNESIUM SULF RIDER 2 GM/50 ML PREMIX IV ONE (10:04)
[2020-12-13] MEDS: HYDROmorphone 2 MG/1 ML VIAL IV PRN ×2 (11:26→16:59)
[2020-12-13] MEDS: cefTRIAXone 1,000 MG in SODIUM CHLORIDE 0.9% 100 ML IV SCH (22:03)
[2020-12-14] MEDS: ENOXAPARIN 40 MG/0.4 ML SYRINGE SUBCUT SCH ×2 (00:04→22:00)
[2020-12-14] MEDS: ASPIRIN EC 81 MG TABLET PO SCH ×2 (00:35→22:50)
[2020-12-14] MEDS: metFORMIN 500 MG TABLET PO SCH ×3 (00:36→22:50)
[2020-12-14] MEDS: cloNIDine 0.1 MG TABLET PO SCH ×3 (00:36→22:50)
[2020-12-14] MEDS: LOSARTAN 50 MG TABLET PO SCH ×2 (00:36→22:50)
[2020-12-14] MEDS: SIMVASTATIN 40 MG TABLET PO SCH ×2 (00:36→22:50)
[2020-12-14] MEDS: hydroCHLOROthiazide 12.5 MG CAPSULE PO SCH ×2 (00:36→22:50)
[2020-12-14] MEDS: HYDROmorphone 2 MG/1 ML VIAL IV PRN ×3 (01:38→14:12)
[2020-12-14 03:55] LABS: Basophils # 0.1 10*3/uL (0.0-0.2); Basophils % 0.5 % (0.0-0.8); Eosinophils % 0.3 % (0.00-10.9); Hematocrit 29.6 VOL% (35.7-47.0); Hemoglobin 9.7 GM/DL (12.0-16.0); Immature Granulocytes % 0.7 %; Immature Granulocytes Absolute 0.08 #; Lymphocytes # 1.4 10*3/uL (1.4-4.0); Lymphocytes % 12.3 % (21.3-54.2); Mean Corpuscular HGB Conc 32.8 GM/DL (32-36); Mean Corpuscular Volume 89.4 FL (87-102); Mean Platelet Volume 10.3 FL (9.6-12.0); Monocytes % 9.5 % (1.7-12.7); Neutrophils % 76.7 % (38.7-73.9); Platelet Count 177 T/CUMM (130-400); Red Blood Count 3.31 MC/CUMM (3.8-5.5); Red Cell Distribution Width 14.5 % (9.3-17.3); White Blood Count 11.7 T/CUMM (4-12)
[2020-12-14 04:12] LABS: Calcium 8.2 MG/DL (8.5-10.1); Osmolality,Calculated 286.1 MOS/KG (273-304); Potassium 4.3 MMOL/L (3.5-5.1)
[2020-12-14] MEDS: METOPROLOL SUCCINATE XL 50 MG TABLET PO SCH (09:19)
[2020-12-14] MEDS: SODIUM CHLORIDE 0.9% 1,000 ML IV SCH ×2 (10:21→18:07)
[2020-12-14] MEDS ORDERED: TUBERCULIN SKIN TEST 0.1 ML SYRINGE INTRADERM ONE (10:42)
[2020-12-14] MEDS: cefTRIAXone 1,000 MG in SODIUM CHLORIDE 0.9% 100 ML IV SCH (22:00)
[2020-12-15] MEDS: HYDROmorphone 2 MG/1 ML VIAL IV PRN ×2 (03:38→09:14)
[2020-12-15 05:15] LABS: Basophils % 0.5 % (0.0-0.8); Eosinophils # 0.1 10*3/uL (0.0-0.87); Eosinophils % 0.9 % (0.00-10.9); Hematocrit 28.9 VOL% (35.7-47.0); Hemoglobin 9.2 GM/DL (12.0-16.0); Immature Granulocytes % 0.6 %; Immature Granulocytes Absolute 0.05 #; Lymphocytes # 1.5 10*3/uL (1.4-4.0); Lymphocytes % 17.1 % (21.3-54.2); Mean Corpuscular HGB Conc 31.8 GM/DL (32-36); Mean Corpuscular Volume 92.3 FL (87-102); Mean Platelet Volume 10.2 FL (9.6-12.0); Monocytes % 11.7 % (1.7-12.7); Neutrophils % 69.2 % (38.7-73.9); Platelet Count 182 T/CUMM (130-400); Red Blood Count 3.13 MC/CUMM (3.8-5.5); Red Cell Distribution Width 14.5 % (9.3-17.3); White Blood Count 8.8 T/CUMM (4-12)
[2020-12-15] MEDS: SODIUM CHLORIDE 0.9% 1,000 ML IV SCH ×2 (05:18→15:27)
[2020-12-15 05:48] LABS: Calcium 8.6 MG/DL (8.5-10.1); Osmolality,Calculated 293.6 MOS/KG (273-304); Potassium 3.9 MMOL/L (3.5-5.1)
[2020-12-15] MEDS: cloNIDine 0.1 MG TABLET PO SCH ×2 (08:22→21:36)
[2020-12-15] MEDS: metFORMIN 500 MG TABLET PO SCH ×2 (08:23→21:36)
[2020-12-15] MEDS: METOPROLOL SUCCINATE XL 50 MG TABLET PO SCH (08:23)
[2020-12-15] MEDS: LABETALOL 20 MG/4 ML SYRINGE IV PRN (15:27)
[2020-12-15] MEDS: ASPIRIN EC 81 MG TABLET PO SCH (21:35)
[2020-12-15] MEDS: hydroCHLOROthiazide 12.5 MG CAPSULE PO SCH (21:36)
[2020-12-15] MEDS: cefTRIAXone 1,000 MG in SODIUM CHLORIDE 0.9% 100 ML IV SCH (21:36)
[2020-12-15] MEDS: LOSARTAN 50 MG TABLET PO SCH (21:36)
[2020-12-15] MEDS: SIMVASTATIN 40 MG TABLET PO SCH (21:36)
[2020-12-15] MEDS: ENOXAPARIN 40 MG/0.4 ML SYRINGE SUBCUT SCH (21:36)
[2020-12-16] MEDS: SODIUM CHLORIDE 0.9% 1,000 ML IV SCH ×2 (04:41→08:25)
[2020-12-16 06:19] LABS: Basophils % 0.5 % (0.0-0.8); Eosinophils # 0.1 10*3/uL (0.0-0.87); Eosinophils % 1.4 % (0.00-10.9); Hematocrit 28.1 VOL% (35.7-47.0); Hemoglobin 9.1 GM/DL (12.0-16.0); Immature Granulocytes % 0.5 %; Immature Granulocytes Absolute 0.04 #; Lymphocytes # 1.5 10*3/uL (1.4-4.0); Lymphocytes % 19.2 % (21.3-54.2); Mean Corpuscular HGB Conc 32.4 GM/DL (32-36); Mean Corpuscular Volume 90.6 FL (87-102); Mean Platelet Volume 10.5 FL (9.6-12.0); Monocytes % 14.2 % (1.7-12.7); Neutrophils % 64.2 % (38.7-73.9); Platelet Count 196 T/CUMM (130-400); Red Cell Distribution Width 14.6 % (9.3-17.3); White Blood Count 7.9 T/CUMM (4-12)
[2020-12-16 06:36] LABS: Calcium 8.7 MG/DL (8.5-10.1); Osmolality,Calculated 296.3 MOS/KG (273-304); Potassium 3.5 MMOL/L (3.5-5.1)
[2020-12-16] MEDS: cloNIDine 0.1 MG TABLET PO SCH (08:24)
[2020-12-16] MEDS: metFORMIN 500 MG TABLET PO SCH (08:25)
[2020-12-16] MEDS: METOPROLOL SUCCINATE XL 100 MG TABLET PO SCH (08:25)
[2020-12-16 16:17] LABS: Calcium 8.5 MG/DL (8.5-10.1); Osmolality,Calculated 289.8 MOS/KG (273-304); Potassium 3.3 MMOL/L (3.5-5.1)
[2020-12-16] MEDS: SODIUM CHLORIDE 0.45% 1,000 ML IV SCH (16:18)
[2020-12-16] MEDS: LABETALOL 20 MG/4 ML SYRINGE IV PRN (16:20)
[2020-12-16] MEDS ORDERED: hydrALAZINE 20 MG/1 ML VIAL IV PRN (18:09)
[2020-12-16] MEDS: ENOXAPARIN 40 MG/0.4 ML SYRINGE SUBCUT SCH (20:59)
[2020-12-16] MEDS: cefTRIAXone 1,000 MG in SODIUM CHLORIDE 0.9% 100 ML IV SCH (21:01)
[2020-12-17] MEDS: ASPIRIN EC 81 MG TABLET PO SCH ×2 (00:59→20:38)
[2020-12-17] MEDS: cloNIDine 0.1 MG TABLET PO SCH ×3 (01:00→20:38)
[2020-12-17] MEDS: metFORMIN 500 MG TABLET PO SCH ×3 (01:00→20:38)
[2020-12-17] MEDS: hydroCHLOROthiazide 12.5 MG CAPSULE PO SCH ×2 (01:00→20:38)
[2020-12-17] MEDS: SIMVASTATIN 40 MG TABLET PO SCH ×2 (01:00→20:38)
[2020-12-17] MEDS: LOSARTAN 50 MG TABLET PO SCH ×2 (01:00→20:38)
[2020-12-17] MEDS ORDERED: MAGNESIUM SULF RIDER 4 GM/100 ML PREMIX IV PRN (06:23)
[2020-12-17] MEDS ORDERED: MAGNESIUM SULF RIDER 2 GM/50 ML PREMIX IV PRN (06:23)
[2020-12-17] MEDS ORDERED: POTASSIUM CHLORIDE RIDER 10 MEQ/100 ML PREMIX IV PRN (06:23)
[2020-12-17 06:27] LABS: Basophils % 0.4 % (0.0-0.8); Eosinophils # 0.3 10*3/uL (0.0-0.87); Eosinophils % 3.3 % (0.00-10.9); Hematocrit 27.8 VOL% (35.7-47.0); Hemoglobin 8.8 GM/DL (12.0-16.0); Immature Granulocytes % 0.7 %; Immature Granulocytes Absolute 0.06 #; Lymphocytes # 1.8 10*3/uL (1.4-4.0); Lymphocytes % 21.3 % (21.3-54.2); Mean Corpuscular HGB Conc 31.7 GM/DL (32-36); Mean Corpuscular Volume 93.3 FL (87-102); Mean Platelet Volume 10.6 FL (9.6-12.0); Monocytes % 12.2 % (1.7-12.7); Neutrophils % 62.1 % (38.7-73.9); Platelet Count 190 T/CUMM (130-400); Red Blood Count 2.98 MC/CUMM (3.8-5.5); Red Cell Distribution Width 14.6 % (9.3-17.3); White Blood Count 8.3 T/CUMM (4-12)
[2020-12-17 06:40] LABS: Calcium 8.1 MG/DL (8.5-10.1); Osmolality,Calculated 288.7 MOS/KG (273-304); Potassium 3.4 MMOL/L (3.5-5.1)
[2020-12-17] MEDS: METOPROLOL SUCCINATE XL 100 MG TABLET PO SCH (10:40)
[2020-12-17] MEDS: POTASSIUM CHLORIDE 20 MEQ TABLET PO PRN ×3 (12:30→17:15)
[2020-12-17] MEDS: SODIUM CHLORIDE 0.45% 1,000 ML IV SCH (17:51)
[2020-12-17] MEDS: ENOXAPARIN 40 MG/0.4 ML SYRINGE SUBCUT SCH (20:39)
[2020-12-17] MEDS: cefTRIAXone 1,000 MG in SODIUM CHLORIDE 0.9% 100 ML IV SCH (20:39)
[2020-12-18 06:50] LABS: Basophils # 0.1 10*3/uL (0.0-0.2); Basophils % 0.6 % (0.0-0.8); Eosinophils # 0.4 10*3/uL (0.0-0.87); Eosinophils % 5.7 % (0.00-10.9); Hematocrit 31.5 VOL% (35.7-47.0); Immature Granulocytes % 0.6 %; Immature Granulocytes Absolute 0.05 #; Lymphocytes # 1.7 10*3/uL (1.4-4.0); Lymphocytes % 22.3 % (21.3-54.2); Mean Corpuscular HGB Conc 31.7 GM/DL (32-36); Mean Corpuscular Volume 93.8 FL (87-102); Mean Platelet Volume 11.1 FL (9.6-12.0); Neutrophils % 61.8 % (38.7-73.9); Platelet Count 184 T/CUMM (130-400); Red Blood Count 3.36 MC/CUMM (3.8-5.5); Red Cell Distribution Width 14.6 % (9.3-17.3); White Blood Count 7.8 T/CUMM (4-12)
[2020-12-18 07:26] LABS: Calcium 8.5 MG/DL (8.5-10.1); Osmolality,Calculated 275.7 MOS/KG (273-304); Potassium 4.9 MMOL/L (3.5-5.1)
[2020-12-18] MEDS: METOPROLOL SUCCINATE XL 100 MG TABLET PO SCH (08:51)
[2020-12-18] MEDS: metFORMIN 500 MG TABLET PO SCH ×2 (08:51→20:49)
[2020-12-18] MEDS: cloNIDine 0.1 MG TABLET PO SCH ×2 (08:52→20:50)
[2020-12-18] MEDS: PANTOPRAZOLE 40 MG TABLET PO SCH (10:16)
[2020-12-18] MEDS: SODIUM CHLORIDE 0.45% 1,000 ML IV SCH (17:57)
[2020-12-18] MEDS: ENOXAPARIN 40 MG/0.4 ML SYRINGE SUBCUT SCH (20:49)
[2020-12-18] MEDS: ASPIRIN EC 81 MG TABLET PO SCH (20:49)
[2020-12-18] MEDS: SIMVASTATIN 40 MG TABLET PO SCH (20:50)
[2020-12-18] MEDS: LOSARTAN 50 MG TABLET PO SCH (20:50)
[2020-12-18] MEDS: hydroCHLOROthiazide 12.5 MG CAPSULE PO SCH (20:50)
[2020-12-19] MEDS: SODIUM CHLORIDE 0.45% 1,000 ML IV SCH (07:16)
[2020-12-19] MEDS: PANTOPRAZOLE 40 MG TABLET PO SCH (08:39)
[2020-12-19] MEDS: metFORMIN 500 MG TABLET PO SCH (08:39)
[2020-12-19] MEDS: METOPROLOL SUCCINATE XL 100 MG TABLET PO SCH (08:39)
[2020-12-19] MEDS: cloNIDine 0.1 MG TABLET PO SCH (08:39)
[2020-12-19 11:34] VITALS: BP 125/50
== END 2020-12-19 15:00 | disposition swing bed (61) | DRG 480 ==
LOC: N.ED 09:30 → N.EDINP 11:51 → N.3E 12:46
PROVIDERS: ADMIT Family Medicine; ATTEND Family Medicine